=== PATIENT | male | born 1985 | race Caucasian/White ===

== ENCOUNTER 2021-09-17 14:52 | Emergency (ER) | payer SELFPAY ==
--- NOTE | ~2021-09-17 | XR_ITS ---
EXAMINATION: XR CHEST CLINICAL INFORMATION: Epigastric pain. COMPARISON: None. TECHNIQUE: AP view of the chest was obtained. FINDINGS: No significant abnormality is noted involving the heart, lungs, mediastinum, bony thorax or soft tissues. XR/XR chest 1V IMPRESSION: Unremarkable examination.
--- NOTE | ~2021-09-17 | CT_ITS ---
EXAMINATION: CT ABDOMEN AND PELVIS WITH CONTRAST CLINICAL INFORMATION: Epigastric pain. COMPARISON: None TECHNIQUE: Multidetector volumetric images were obtained from the superior aspect of the liver through the pubic symphysis following administration 85 mL of Omnipaque 350 intravenous contrast. Sagittal and coronal reformatted images were obtained on the technologist's workstation. Oral Contrast: No. This CT examination was performed using dose optimization techniques as appropriate, variously including the following: *Automated exposure control. *Adjustment of mA and/or kV according to patient size (this includes techniques or standardized protocols for targeted exams where dose is matched to indication/reason for exam; i.e. extremities or head). *Use of iterative reconstruction technique. DLP: 299 mGy-cm FINDINGS: LUNG BASES: The visualized lung bases are unremarkable. LIVER, GALLBLADDER, AND BILIARY TREE: The liver is normal in size, shape, and attenuation. No focal hepatic lesion or biliary ductal dilatation is present. The gallbladder is unremarkable with no evidence of radiopaque gallstones, gallbladder wall thickening, or obvious pericholecystic inflammatory changes. PANCREAS: Unremarkable. SPLEEN: Unremarkable. ADRENAL GLANDS: Unremarkable. KIDNEYS AND URETERS: The kidneys are normal in size, shape, and attenuation. No hydronephrosis, hydroureter, or calculi seen. No perinephric stranding. BLADDER: Unremarkable. GASTROINTESTINAL TRACT: Evaluation of wall thickening and mural abnormalities in the GI tract is limited due to underdistention and decreased intra-abdominal/mesenteric fat. The stomach and the small bowel are nondilated. There are however, several fluid-filled loops of small bowel throughout the abdomen which could be seen with gastroenteritis. No definite pericolonic inflammatory changes. The appendix is not identified. ABDOMINAL WALL: No significant hernia is appreciated. LYMPH NODES: Evaluation of lymphadenopathy is limited due to decreased intra-abdominal and mesenteric fat. However, accounting for its limitations, no definite lymphadenopathy by size criteria is identified. VASCULAR: Unremarkable. PELVIC VISCERA: Unremarkable. OSSEOUS STRUCTURES: No acute or aggressive-appearing osseous abnormalities. 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 Scattered bone islands are also noted. CT/CT abdomen pelvis w con IMPRESSION: Aside from possible mild gastroenteritis, no other acute abnormalities are identified to explain the patient's symptoms.
[2021-09-17 15:01] VITALS: BP 139/79; PULSE 78; RESP 17; TEMP 36.5; O2SAT 98; BMI 19.3
[2021-09-17 15:07] LABS: MANUAL DIFF FLAG NO
[2021-09-17 15:09] LABS: Basophils Percent Auto 0.3 % (0-2); Eosinophils Absolute Auto 0.2 X10*3/uL (0.0-0.4); Hematocrit 42.9 % (42.0-52.0); Imm Gran Abs Auto 0.03 X10*3/uL (0.00-0.03); Imm Gran Pct Auto 0.3 % (0.0-0.4); Lymphocytes Percent Auto 18.6 % (20-40); Mean Corpuscular HGB Conc 32.6 g/dl (31.0-36.0); Mean Corpuscular Volume 92.1 fL (80.0-98.0); Mean Platelet Volume 9.9 fL (9.4-12.4); Monocytes Absolute Auto 0.6 X10*3/uL (0.1-1.2); Monocytes Percent Auto 5.3 % (2-11); Neutrophils Percent Auto 73.5 % (45-73); Platelet Count 205 X10*3/uL (160-400); Red Blood Count 4.66 X10*6/uL (4.60-5.80); Red Cell Distribution Width 12.4 % (11.0-16.0); White Blood Count 10.9 X10*3/uL (4.8-10.8)
[2021-09-17 15:20] LABS: Appearance Urine CLEAR; Color Urine YELLOW; Glucose Urine UA NEG (NEG); Leukocyte Esterase Urine NEG (NEG); Nitrite Urine NEG (NEG); Specific Gravity - Urine 1.015 (1.005-1.025); UACC Culture Trigger NO; Urine Blood 1+ (NEG); Urine Ketones NEG (NEG); Urine Protein NEG (NEG-TRACE)
[2021-09-17 15:27] LABS: WBC Urine 0 /HPF (0-4)
[2021-09-17 15:35] LABS: Alanine Aminotransferase 11 U/L (0-40); Albumin Level 4.3 g/dL (3.5-5.0); Alkaline Phosphatase 80 U/L (39-117); Anion Gap 9 (12-20); Aspartate Amino Transferase 15 U/L (5-37); Bilirubin Total 0.5 mg/dL (0.0-1.0); Blood Urea Nitrogen 9 mg/dL (9-16); Calcium 9.3 mg/dL (8.4-10.2); Carbon Dioxide 30 mmol/L (22-29); Chloride 102 mmol/L (96-108); Creatinine Clr Calc Pharmacy 90.8; Estimated Glomerular Filt Rate > 60; Glucose Random 110 mg/dL (60-115); Potassium 3.8 mmol/L (3.3-5.1); Sodium 137 mmol/L (135-145); Total Protein 6.9 g/dL (6.5-8.0)
--- NOTE | 2021-09-17 16:21 | ED_ITS ---
HPI - Abdominal Pain General Chief Complaint: Abdominal Pain <GUILLERMO Esposito Last Filed: 09/17/21 19:06> Stated Complaint: abd pain, vomiting <GUILLERMO Esposito Last Filed: 09/17/21 19:06> Time Seen by Provider: 09/17/21 16:04 <GUILLERMO Esposito Last Filed: 09/17/21 19:06> Source: patient <GUILLERMO Esposito Last Filed: 09/17/21 19:06> Mode of arrival: ambulatory <GUILLERMO Esposito Last Filed: 09/17/21 19:06> Limitations: language barrier <GUILLERMO Esopsito Last Filed: 09/17/21 19:06> History of Present Illness HPI narrative: 36-year-old Turkish-speaking male presents for 3 days of intermittent epigastric pain. Patient vomited once 2 days ago, and has been mildly nauseous. Reports he has had dark stools. Reports the pain is worse 10 minutes after he eats. Patient had this pain before in [place], but never had it evaluated. No diarrhea, no fevers, no alcohol intake. Patient reports he takes ibuprofen at times for his migraines, has not taking ibuprofen for the last 2 weeks. No history of belly surgeries. Patient is healthy at baseline, no significant past medical history, noting medications. Patient has no pain now, at its worst the pain is 5/10. <GUILLERMO Esposito - Last Filed: 09/17/21 19:06> MD elicited complaint: abdominal pain <GUILLERMO Esposito Last Filed: 09/17/21 19:06> Pertinent past history: none <GUILLERMO Esposito Last Filed: 09/17/21 19:06> Onset (ago): day(s) (3) <GUILLERMO Esposito Last Filed: 09/17/21 19:06> Pain Consistency: intermittent <GUILLERMO Esposito Last Filed: 09/17/21 19:06> Location: epigastric <GUILLERMO Esposito Last Filed: 09/17/21 19:06> Severity: moderate <GUILLERMO Esposito Last Filed: 09/17/21 19:06> Pain scale (0-10): 5 <Raisa Cantor [facility] Last Filed: 09/17/21 19:06> Quality: cramping <Raisa Cantor [facility] Last Filed: 09/17/21 19:06> Radiation: none <Raisa Cantor [facility] Last Filed: 09/17/21 19:06> Migration to: no migration <Raisa Cantor [facility] Last Filed: 09/17/21 19:06> Relieving factors: eating <Raisa Cantor [facility] Last Filed: 09/17/21 19:06> Associated symptoms: nausea, vomiting and melena <Raisa Cantor [facility] Last Filed: 09/17/21 19:06> Related Data Allergies/Adverse Reactions: Allergies Allergy/AdvReac Type Severity Reaction Status Date / Time No Known Allergies Allergy Verified 09/17/21 16:22 <Raisa Cantor [facility] Last Filed: 09/17/21 19:06> Review of Systems Constitutional: Denies body ache(s), Denies chills, Denies fatigue, Denies fever(s), Denies headache(s), Denies malaise and Denies weakness <Raisa Cantor [facility] Last Filed: 09/17/21 19:06> Eyes: Denies diplopia <Raisa Cantor [facility] Last Filed: 09/17/21 19:06> Denies vertigo, Denies dizziness, Denies otalgia, Denies headache(s), Denies mouth pain, Denies odynophagia, Denies post nasal drip, Denies sinus pain, Denies sinus pressure, Denies sore throat and Denies throat swelling <Raisa Cantor [facility] Last Filed: 09/17/21 19:06> Cardiovascular: Denies chest pain, Denies syncope, Denies leg edema, Denies lightheadedness, Denies Loss of Consciousness, Denies palpitations and Denies dyspnea <Raisa Cantor [facility] Last Filed: 09/17/21 19:06> Respiratory: Denies chest congestion, Denies cough and Denies dyspnea <Raisa Cantor [facility] Last Filed: 09/17/21 19:06> Gastrointestinal: Reports abdominal pain, Reports melena, Denies hematochezia, Denies t enesmus, Denies coffee ground emesis, Denies constipation, Denies heartburn, Denies diarrhea, Reports nausea, Denies odynophagia, Reports vomiting and Denies hematemesis <GUILLERMO Esposito - Last Filed: 09/17/21 19:06> Genitourinary: Reports no additional male genitourinary complaints, Denies penile discharge, Denies scrotal swelling, Denies testicular mass and Denies testicular pain <GUILLERMO Esposito - Last Filed: 09/17/21 19:06> Musculoskeletal: Reports no additional musculoskeletal complaints <GUILLERMO Esposito - Last Filed: 09/17/21 19:06> Denies confusion, Denies vertigo, Denies dizziness, Denies syncope, Denies headache(s) and Denies weakness <GUILLERMO Esposito - Last Filed: 09/17/21 19:06> Psychiatric: Denies anxiety, Denies confusion and Denies depression <GUILLERMO Esposito - Last Filed: 09/17/21 19:06> Endocrine: Denies fatigue and Denies palpitations <GUILLERMO Esposito - Last Filed: 09/17/21 19:06> Allergic/Immunologic: Denies throat swelling <GUILLERMO Esposito - Last Filed: 09/17/21 19:06> [facility] Social History Social History: Social History Advance Directives: No Advance Directives Information Provided: No <GUILLERMO Esposito - Last Filed: 09/17/21 19:06> Physical Exam ED Vital Signs: Vital Signs - 24 hr 09/17/21 15:01 09/17/21 17:38 Temperature 97.7 F Pulse Rate 78 60 Respiratory Rate 17 16 Blood Pressure 139/79 120/70 Pulse Oximetry 98 100 BMI result Body Mass Index 19.3 <GUILLERMO Esposito - Last Filed: 09/17/21 19:06> Vital Signs - 24 hr 09/17/21 15:01 09/17/21 17:38 Temperature 97.7 F Pulse Rate 78 60 Respiratory Rate 17 16 Blood Pressure 139/79 120/70 Pulse Oximetry 98 100 BMI result Body Mass Index 19.3 <GUILLERMO Armijo - Last Filed: 09/17/21 19:22> Const General: cooperative, healthy appearing, comfortable, no acute distress, well developed, alert and awake; No confusion <Raisa Cantor [facility] Last Filed: 09/17/21 19:06> Nutritional Appearance: well nourished <Raisa Cantor [facility] Last Filed: 09/17/21 19:06> Orientation/consciousness: patient oriented x3 and No confusion <Raisa Cantor [facility] Last Filed: 09/17/21 19:06> Limitations: no limitations <Raisa Cantor [facility] Last Filed: 09/17/21 19:06> HENMT Head: Yes normal to inspection, Yes No palpable skull fracture present, Yes nor mocephalic and Yes atraumatic <Raisa Cantor [facility] Last Filed: 09/17/21 19:06> Ears: hearing grossly normal bilaterally <Raisa Cantor [facility] Last Filed: 09/17/21 19:06> General nose exam: Normal external nose present <Raisa Cantor [facility] Last Filed: 09/17/21 19:06> Face and sinus: Yes normal facial exam <Raisa Cantor [facility] Last Filed: 09/17/21 19:06> Mouth: Normal oral and palatal mucosa present <Raisa Cantor [facility] Last Filed: 09/17/21 19:06> Throat: Yes posterior oropharynx normal <Raisa Cantor [facility] Last Filed: 09/17/21 19:06> Eyes Pupils: Equal, round and reactive pupils present <Raisa Cantor [facility] Last Filed: 09/17/21 19:06> EOM: EOMs intact bilaterally <Raisa Cantor [facility] Last Filed: 09/17/21 19:06> Neck Neck: Yes normal visual inspection, Yes full ROM, Yes no lymphadenopathy, Yes no meningeal signs and Yes trachea midline <Raisa Cantor [facility] Last Filed: 09/17/21 19:06> Resp Effort & Inspection: normal respiratory effort and able to speak in complete sentences <Raisa Cantor [facility] Last Filed: 09/17/21 19:06> Auscultation: clear to auscultation bilaterally, no crackles, no rales, no rhonchi and no wheezes <Raisa Cantor [facility] Last Filed: 09/17/21 19:06> Cardio Rate: regular rate <Raisa Cantor [facility] Last Filed: 09/17/21 19:06> Rhythm: regular rhythm <Raisa Cantor [facility] Last Filed: 09/17/21 19:06> Heart sounds: S1 normal heart sound present and S2 normal heart sound present <Raisa Cantor [facility] Last Filed: 09/17/21 19:06> GI Inspection: Yes normal to inspection, No distended, No incision, No Abdominal panniculus present and No obesity <Raisa Cantor [facility] Last Filed: 09/17/21 19:06> Palpation (GI): Soft to palpation, not firm, Tenderness to palpation present (GI) in the e pigastrum, Guarding due to palpation present (GI) other (epigastric) and not rigid <Raisa Cantor [facility] Last Filed: 09/17/21 19:06> Percussion: Yes normal to percussion <Raisa Cantor [facility] Last Filed: 09/17/21 19 :06> Auscultation: normal bowel sounds <Raisa Cantor [facility] Last Filed: 09/17/21 19:06> Skin General skin exam: no rashes or lesions noted <Raisa Cantor [facility] Last Filed: 09/17/21 19:06> Neuro General: patient oriented x3, gait normal, tone normal, no meningeal signs, no focal motor deficits and No confusion <Raisa Cantor [facility] Last Filed: 09/17/21 19:06> Cranial nerves: Yes Equal, round and reactive pupils present <Raisa Cantor [facility] Last Filed: 09/17/21 19:06> Extrem General: Yes normal to inspection, Yes full ROM and Yes capillary refill normal <Raisa Cantor [facility] Last Filed: 09/17/21 19:06> Psych Appearance: grossly normal and well kempt <Riasa Cantor [facility] Last Filed: 09/17/21 19:06> Mental Status: mental status grossly normal <Raisa Cantor [facility] Last Filed: 09/17/21 19:06> Speech and movement: Normal speech and movement present <Raisa Cantor [facility] Last Filed: 09/17/21 19:06> Affect: normal affect <GUILLERMO Esposito - Last Filed: 09/17/21 19:06> Attitude: cooperative <GUILLERMO Esposito Last Filed: 09/17/21 19:06> Thought process: Normal thought process present <GUILLERMO Esposito Last Filed: 09/17/21 19:06> Course Course Course Narrative: 36-year-old male with 3 days of intermittent epigastric pain that occurs after eating. Also endorses dark stools. On exam, patient is well-appearing, stable vitals, patient is tender and guarding in his epigastrium. Labs that were drawn showed a white blood cell count of 10.9, +1 blood in his urine, CMP is within normal limits. One hundred lipase, troponin, EKG, chest x-ray, fecal occult blood test, with CT abdomen. Suspect gastric ulcer pathology . <GUILLERMO Esposito Last Filed: 09/17/21 19:06> Reevaluation(s) Reevaluation #1: Guaiac is negative, EKG unremarkable, troponin is undetectable. Lipase is not elevated. Chest x-ray is normal. <GUILLERMO Esposito - Last Filed: 09/17/21 19:06> Reevaluation #2: Signed patient out to GUILLERMO Ortiz, pending CT results <GUILLERMO Esposito Last Filed: 09/17/21 19:06> Time: 19:00 <GUILLERMO Armijo - Last Filed: 09/17/21 19:22> Reevaluation #3: CT abdomen/pelvis shows gastroenteritis but is otherwise unremarkable. Patient is clear for discharge. <GUILLERMO Armijo - Last Filed: 09/17/21 19:22> Time: 19:22 <GUILLERMO Armijo - Last Filed: 09/17/21 19:22> MDM - Abdominal Pain MDM Narrative Medical decision making narrative: Sign 7 rate of 63, FL interval 152, QRS 92, QTC 384, normal axis, no ST depressions or elevations, no T-wave abnormalities <GUILLERMO Esposito Last Filed: 09/17/21 19:06> Lab Data Result diagrams: : 09/17/21 15:03 09/17/21 15:03 <GUILLERMO Esposito Last Filed: 03/30/22 19:06> Labs: Lab Results 09/17/21 09/17/21 09/17/21 Range/Units 15:03 15:03 15:09 WBC 10.9 H (4.8-10.8) X10*3/uL RBC 4.66 (4.60-5.80) X10*6/uL Hgb 14.0 (14.0-18.0) g/dl Hct 42.9 (42.0-52.0) % MCV 92.1 (80.0-98.0) fL MCH 30.0 (27.0-33.0) pg MCHC 32.6 (31.0-36.0) g/dl RDW 12.4 (11.0-16.0) % Plt Count 205 (160-400) X10*3/uL MPV 9.9 (9.4-12.4) fL Immature Gran % (Auto) 0.3 (0.0-0.4) % Neut % (Auto) 73.5 H (45-73) % Lymph % (Auto) 18.6 L (20-40) % [place] % (Auto) 5.3 (2-11) % Eos % (Auto) 2.0 (0-4) % Baso % (Auto) 0.3 (0-2) % Lymph # (Auto) 2.0 (1.2-4.9) X10*3/uL [place] # (Auto) 0.6 (0.1-1.2) X10*3/uL Eos # (Auto) 0.2 (0.0-0.4) X10*3/uL Baso # (Auto) 0.0 (0.0-0.2) X10*3/uL Abs Immat Gran (auto) 0.03 (0.00-0.03) X10*3/uL Absolute Neuts (auto) 8.0 (2.0-8.3) x10*3/uL Absolute Nucleated RBC 0.000 (0.0-0.012) X10*3/uL Nucleated RBC % (auto) 0.0 (0.0-0.2) /100WBC Sodium 137 (135-145) mmol/L Potassium 3.8 (3.3-5.1) mmol/L Chloride 102 (96-108) mmol/L Carbon Dioxide 30 H (22-29) mmol/L Anion Gap 9 L (12-20) BUN 9 (9-16) mg/dL Creatinine 0.87 (0.5-1.4) mg/dL Estim Creat Clear Calc 90.8 Estimated GFR > 60 Random Glucose 110 (60-115) mg/dL Calcium 9.3 (8.4-10.2) mg/dL Total Bilirubin 0.5 (0.0-1.0) mg/dL AST 15 (5-37) U/L ALT 11 (0-40) U/L Alkaline Phosphatase 80 (39-117) U/L Troponin I High Sens (<3.5-35.0) ng/L Total Protein 6.9 (6.5-8.0) g/dL Albumin 4.3 (3.5-5.0) g/dL Lipase (8-78) U/L Urine Color YELLOW Urine Appearance CLEAR Urine pH 7.0 (5.0-8.0) Ur Specific [place] 1.015 (1.005-1.025) Urine Protein NEG (NEG-TRACE) MG/DL Urine Glucose (UA) NEG (NEG) MG/DL Urine Ketones NEG (NEG) MG/DL Urine Blood 1+ H (NEG) Urine Nitrite NEG (NEG) Ur Leukocyte Esterase NEG (NEG) Urine RBC 1-4 (0) /HPF Urine WBC 0 (0-4) /HPF Ur Squamous Epith Cells NONE /LPF Urine Bacteria NONE /LPF Stool Occult Blood (NEGATIVE) 09/17/21 09/17/21 09/17/21 Range/Units 17:01 17:37 17:37 WBC (4.8-10.8) X10*3/uL RBC (4.60-5.80) X10*6/uL Hgb (14.0-18.0) g/dl Hct (42.0-52.0) % MCV (80.0-98.0) fL MCH (27.0-33.0) pg MCHC (31.0-36.0) g/dl RDW (11.0-16.0) % Plt Count (160-400) X10*3/uL MPV (9.4-12.4) fL Immature Gran % (Auto) (0.0-0.4) % Neut % (Auto) (45-73) % Lymph % (Auto) (20-40) % [place] % (Auto) (2-11) % Eos % (Auto) (0-4) % Baso % (Auto) (0-2) % Lymph # (Auto) (1.2-4.9) X10*3/uL [place] # (Auto) (0.1-1.2) X10*3/uL Eos # (Auto) (0.0-0.4) X10*3/uL Baso # (Auto) (0.0-0.2) X10*3/uL Abs Immat Gran (auto) (0.00-0.03) X10*3/uL Absolute Neuts (auto) (2.0-8.3) x10*3/uL Absolute Nucleated RBC (0.0-0.012) X10*3/uL Nucleated RBC % (auto) (0.0-0.2) /100WBC Sodium (135-145) mmol/L Potassium (3.3-5.1) mmol/L Chloride (96-108) mmol/L Carbon Dioxide (22-29) mmol/L Anion Gap (12-20) BUN (9-16) mg/dL Creatinine (0.5-1.4) mg/dL Estim Creat Clear Calc Estimated GFR Random Glucose (60-115) mg/dL Calcium (8.4-10.2) mg/dL Total Bilirubin (0.0-1.0) mg/dL AST (5-37) U/L ALT (0-40) U/L Alkaline Phosphatase (39-117) U/L Troponin I High Sens < 3.5 (<3.5-35.0) ng/L Total Protein (6.5-8.0) g/dL Albumin (3.5-5.0) g/dL Lipase 13 (8-78) U/L Urine Color Urine Appearance Urine pH (5.0-8.0) Ur Specific [place] (1.005-1.025) Urine Protein (NEG-TRACE) MG/DL Urine Glucose (UA) (NEG) MG/DL Urine Ketones (NEG) MG/DL Urine Blood (NEG) Urine Nitrite (NEG) Ur Leukocyte Esterase (NEG) Urine RBC (0) /HPF Urine WBC (0-4) /HPF Ur Squamous Epith Cells /LPF Urine Bacteria /LPF Stool Occult Blood NEGATIVE (NEGATIVE) <GUILLERMO Esposito - Last Filed: 09/17/21 19:06> Lab Results 09/17/21 09/17/21 09/17/21 Range/Units 15:03 15:03 15:09 WBC 10.9 H (4.8-10.8) X10*3/uL RBC 4.66 (4.60-5.80) X10*6/uL Hgb 14.0 (14.0-18.0) g/dl Hct 42.9 (42.0-52.0) % MCV 92.1 (80.0-98.0) fL MCH 30.0 (27.0-33.0) pg MCHC 32.6 (31.0-36.0) g/dl RDW 12.4 (11.0-16.0) % Plt Count 205 (160-400) X10*3/uL MPV 9.9 (9.4-12.4) fL Immature Gran % (Auto) 0.3 (0.0-0.4) % Neut % (Auto) 73.5 H (45-73) % Lymph % (Auto) 18.6 L (20-40) % [place] % (Auto) 5.3 (2-11) % Eos % (Auto) 2.0 (0-4) % Baso % (Auto) 0.3 (0-2) % Lymph # (Auto) 2.0 (1.2-4.9) X10*3/uL [place] # (Auto) 0.6 (0.1-1.2) X10*3/uL Eos # (Auto) 0.2 (0.0-0.4) X10*3/uL Baso # (Auto) 0.0 (0.0-0.2) X10*3/uL Abs Immat Gran (auto) 0.03 (0.00-0.03) X10*3/uL Absolute Neuts (auto) 8.0 (2.0-8.3) x10*3/uL Absolute Nucleated RBC 0.000 (0.0-0.012) X10*3/uL Nucleated RBC % (auto) 0.0 (0.0-0.2) /100WBC Sodium 137 (135-145) mmol/L Potassium 3.8 (3.3-5.1) mmol/L Chloride 102 (96-108) mmol/L Carbon Dioxide 30 H (22-29) mmol/L Anion Gap 9 L (12-20) BUN 9 (9-16) mg/dL Creatinine 0.87 (0.5-1.4) mg/dL Estim Creat Clear Calc 90.8 Estimated GFR > 60 Random Glucose 110 (60-115) mg/dL Calcium 9.3 (8.4-10.2) mg/dL Total Bilirubin 0.5 (0.0-1.0) mg/dL AST 15 (5-37) U/L ALT 11 (0-40) U/L Alkaline Phosphatase 80 (39-117) U/L Troponin I High Sens (<3.5-35.0) ng/L Total Protein 6.9 (6.5-8.0) g/dL Albumin 4.3 (3.5-5.0) g/dL Lipase (8-78) U/L Urine Color YELLOW Urine Appearance CLEAR Urine pH 7.0 (5.0-8.0) Ur Specific [place] 1.015 (1.005-1.025) Urine Protein NEG (NEG-TRACE) MG/DL Urine Glucose (UA) NEG (NEG) MG/DL Urine Ketones NEG (NEG) MG/DL Urine Blood 1+ H (NEG) Urine Nitrite NEG (NEG) Ur Leukocyte Esterase NEG (NEG) Urine RBC 1-4 (0) /HPF Urine WBC 0 (0-4) /HPF Ur Squamous Epith Cells NONE /LPF Urine Bacteria NONE /LPF Stool Occult Blood (NEGATIVE) 09/17/21 09/17/21 09/17/21 Range/Units 17:01 17:37 17:37 WBC (4.8-10.8) X10*3/uL RBC (4.60-5.80) X10*6/uL Hgb (14.0-18.0) g/dl Hct (42.0-52.0) % MCV (80.0-98.0) fL MCH (27.0-33.0) pg MCHC (31.0-36.0) g/dl RDW (11.0-16.0) % Plt Count (160-400) X10*3/uL MPV (9.4-12.4) fL Immature Gran % (Auto) (0.0-0.4) % Neut % (Auto) (45-73) % Lymph % (Auto) (20-40) % [place] % (Auto) (2-11) % Eos % (Auto) (0-4) % Baso % (Auto) (0-2) % Lymph # (Auto) (1.2-4.9) X10*3/uL [place] # (Auto) (0.1-1.2) X10*3/uL Eos # (Auto) (0.0-0.4) X10*3/uL Baso # (Auto) (0.0-0.2) X10*3/uL Abs Immat Gran (auto) (0.00-0.03) X10*3/uL Absolute Neuts (auto) (2.0-8.3) x10*3/uL Absolute Nucleated RBC (0.0-0.012) X10*3/uL Nucleated RBC % (auto) (0.0-0.2) /100WBC Sodium (135-145) mmol/L Potassium (3.3-5.1) mmol/L Chloride (96-108) mmol/L Carbon Dioxide (22-29) mmol/L Anion Gap (12-20) BUN (9-16) mg/dL Creatinine (0.5-1.4) mg/dL Estim Creat Clear Calc Estimated GFR Random Glucose (60-115) mg/dL Calcium (8.4-10.2) mg/dL Total Bilirubin (0.0-1.0) mg/dL AST (5-37) U/L ALT (0-40) U/L Alkaline Phosphatase (39-117) U/L Troponin I High Sens < 3.5 (<3.5-35.0) ng/L Total Protein (6.5-8.0) g/dL Albumin (3.5-5.0) g/dL Lipase 13 (8-78) U/L Urine Color Urine Appearance Urine pH (5.0-8.0) Ur Specific [place] (1.005-1.025) Urine Protein (NEG-TRACE) MG/DL Urine Glucose (UA) (NEG) MG/DL Urine Ketones (NEG) MG/DL Urine Blood (NEG) Urine Nitrite (NEG) Ur Leukocyte Esterase (NEG) Urine RBC (0) /HPF Urine WBC (0-4) /HPF Ur Squamous Epith Cells /LPF Urine Bacteria /LPF Stool Occult Blood NEGATIVE (NEGATIVE) <GUILLERMO Armijo - Last Filed: 09/17/21 19:22> Discharge Plan Discharge Clinical Impression: Epigastric abdominal pain, Gastroenteritis <GUILLERMO Esposito - Last Filed: 09/17/21 19:06> Patient Disposition: Home, Self-Care <GUILLERMO Esposito - Last Filed: 09/17/21 19:06> Instructions: Abdominal Pain (ED) <GUILLERMO Esposito - Last Filed: 09/17/21 19:06> Additional Instructions: [phone] <GUILLERMO Esposito - Last Filed: 09/17/21 19:06> Referrals: Devaughn Penny [Physician] - 2 days <GUILLERMO Esposito - Last Filed: 09/17/21 19:06> Print Language: Greek <GUILLERMO Esposito - Last Filed: 09/17/21 19:06>
--- NOTE | 2021-09-17 16:22 | ECG_ITS ---
Test Reason : EPIGASTRIC PAIN Blood Pressure : / mmHG Vent. Rate : 063 BPM Atrial Rate : 063 BPM P-R Int : 152 ms QRS Dur : 092 ms QT Int : 376 ms P-R-T Axes : 056 054 035 degrees QTc Int : 384 ms Normal sinus rhythm Normal ECG No previous ECGs available Referred By: Raisa Cantor Electronically Signed By:JORGE ORTEGA
[2021-09-17 17:10] LABS: OBS Int Ctl Valid YES; OBS1 NEGATIVE (NEGATIVE)
[2021-09-17] MEDS: iohexoL 350 MG/ML 100 ML INFUS..BTL IV (17:18)
[2021-09-17 17:38] VITALS: BP 120/70; PULSE 60; RESP 16; O2SAT 100
[2021-09-17 18:04] LABS: Lipase 13 U/L (8-78)
[2021-09-17 18:10] LABS: Troponin-I High Sensitivity < 3.5 ng/L (<3.5-35.0)
[2021-09-17] MEDS: 0.9 % Sodium Chloride 1,000 ML 999 ML IV (18:17)
== END 2021-09-17 19:46 | disposition home or self-care (01) ==
PROVIDERS: Physician Assistant; Emergency Provider Emergency Medicine
DX: K52.9 Noninfective gastroenteritis and colitis, unspecified (principal); R10.13 Epigastric pain; R11.2 Nausea with vomiting, unspecified
CPT/HCPCS: 36415; 71045; 74177; 80053; 81001; 82272; 83690; 84484; 85025; 93005; 96360; 99284; Q9967

== ENCOUNTER 2022-03-20 22:39 | Emergency (ER) | payer SELFPAY ==
[2022-03-20 23:58] VITALS: BP 142/79; PULSE 68; RESP 16; TEMP 37.2; O2SAT 98; BMI 20.1
[2022-03-21 00:01] LABS: COVID-19 Test Negative (Negative); IDNOW Serial# 55D5AD1C; Influenza A Negative (Negative); Influenza B2 Negative (Negative)
[2022-03-21 00:51] VITALS: BP 115/70; PULSE 58; RESP 16; TEMP 36.6; O2SAT 99
[2022-03-21 01:05] LABS: MANUAL DIFF FLAG NO
[2022-03-21 01:06] LABS: Basophils Absolute Auto 0.1 X10*3/uL (0.0-0.2); Basophils Percent Auto 0.8 % (0-2); Eosinophils Absolute Auto 0.3 X10*3/uL (0.0-0.4); Eosinophils Percent Auto 3.9 % (0-4); Hematocrit 41.9 % (42.0-52.0); Hemoglobin 13.9 g/dl (14.0-18.0); Imm Gran Abs Auto 0.02 X10*3/uL (0.00-0.03); Imm Gran Pct Auto 0.3 % (0.0-0.4); Lymphocytes Absolute Auto 2.8 X10*3/uL (1.2-4.9); Lymphocytes Percent Auto 43.6 % (20-40); Mean Corpuscular HGB Conc 33.2 g/dl (31.0-36.0); Mean Corpuscular Hemoglobin 30.4 pg (27.0-33.0); Mean Corpuscular Volume 91.7 fL (80.0-98.0); Mean Platelet Volume 10.2 fL (9.4-12.4); Monocytes Absolute Auto 0.5 X10*3/uL (0.1-1.2); Monocytes Percent Auto 7.2 % (2-11); Neutrophils Absolute Auto 2.8 x10*3/uL (2.0-8.3); Neutrophils Percent Auto 44.2 % (45-73); Platelet Count 208 X10*3/uL (160-400); Red Blood Count 4.57 X10*6/uL (4.60-5.80); Red Cell Distribution Width 12.7 % (11.0-16.0); White Blood Count 6.4 X10*3/uL (4.8-10.8)
[2022-03-21 01:23] LABS: Alanine Aminotransferase 12 U/L (0-40); Albumin Level 4.1 g/dL (3.5-5.0); Alkaline Phosphatase 67 U/L (39-117); Anion Gap 17 (12-20); Aspartate Amino Transferase 15 U/L (5-37); Bilirubin Total 0.4 mg/dL (0.0-1.0); Blood Urea Nitrogen 13 mg/dL (9-16); Calcium 9.2 mg/dL (8.4-10.2); Carbon Dioxide 25 mmol/L (22-29); Chloride 106 mmol/L (96-108); Creatinine Clr Calc Pharmacy 78.7; Estimated Glomerular Filt Rate > 60; Glucose Random 83 mg/dL (60-115); Sodium 144 mmol/L (135-145); Total Protein 6.6 g/dL (6.5-8.0)
--- NOTE | 2022-03-21 01:30 | ED.GENADULT ---
HPI - General Adult General Chief complaint: General Medical Stated complaint: cough,fever,headaches Time Seen by Provider: 03/21/22 01:30 Source: patient and parts interpreter Mode of arrival: ambulatory History of Present Illness HPI narrative: 36-year-old male without significant past medical history presents after having positive COVID-19 exposure from his son and states that since yesterday he has had increasing body aches with subjective fevers and chills as well as cough in feelings of dizziness. Patient states that his symptoms have improved with taking Tylenol Related Data Allergies Allergy/AdvReac Type Severity Reaction Status Date / Time No Known Allergies Allergy Verified 09/17/21 16:22 Review of Systems Review of Systems: Pertinent positives and negatives as stated in HPI 10 point review of systems is otherwise negative. [facility] Past Medical History Source: nursing notes reviewed Social History Social History Advance Directives: No Advance Directives Information Provided: Yes Physical Exam ED Vital Signs: Vital Signs - 24 hr 03/20/22 23:58 03/21/22 00:51 Temperature 98.9 F 97.8 F Pulse Rate 68 58 Respiratory Rate 16 16 Blood Pressure 142/79 H 115/70 Pulse Oximetry 98 99 Oxygen Delivery Method Room Air Room Air BMI result Body Mass Index 20.1 VITAL SIGNS: Reviewed. GENERAL: Well developed, well nourished, in no acute distress. HEAD: Normocephalic/atraumatic EYES: PERRLA, EOMI, patient has stye to right upper lid EARS: Ext canals without abnormality, TMs non-bulging and non-erythematous NOSE: Nares patent bilateral OROPHARYNX: no oral lesions noted, posterior pharynx clear but erythematous without noted tonsillar enlargement/erythema/exudates NECK: Supple, no adenopathy LUNGS: Normal breath sounds. No adventitious sounds or accessory muscle use. SpO2<98> CARDIOVASCULAR: Regular rate and rhythm without noted murmurs ABDOMEN: Soft, non-tender, non-distended with bowel sounds. MUSCULOSKELETAL: No tenderness, deformities, or effusions noted on gross inspection. EXTREMITIES: No cyanosis, clubbing or edema. SKIN: Inspection of the skin reveals no rashes NEUROLOGIC: Alert and oriented x 4. Strength and sensation to light touch were grossly intact x 4. Course Course Course Narrative: 36-year-old male with history and clinical presentation consistent with viral syndrome suspect COVID-19 positivity, will provide combination analgesics. On review of all investigations there are no acute findings, however the results were discussed with patient he was strongly recommended to repeat the COVID-19 testing tomorrow morning. Until that time he was instructed to stay away from large groups and wear his mask all the time. Medical Decision Making Lab Data Result diagrams: 03/21/22 00:56 03/21/22 00:56 Labs: Lab Results 03/20/22 03/20/22 03/21/22 Range/Units 23:22 23:22 00:56 WBC 6.4 (4.8-10.8) X10*3/uL RBC 4.57 L (4.60-5.80) X10*6/uL Hgb 13.9 L (14.0-18.0) g/dl Hct 41.9 L (42.0-52.0) % MCV 91.7 (80.0-98.0) fL MCH 30.4 (27.0-33.0) pg MCHC 33.2 (31.0-36.0) g/dl RDW 12.7 (11.0-16.0) % Plt Count 208 (160-400) X10*3/uL MPV 10.2 (9.4-12.4) fL Immature Gran % (Auto) 0.3 (0.0-0.4) % Neut % (Auto) 44.2 L (45-73) % Lymph % (Auto) 43.6 H (20-40) % Metcalfe % (Auto) 7.2 (2-11) % Eos % (Auto) 3.9 (0-4) % Baso % (Auto) 0.8 (0-2) % Lymph # (Auto) 2.8 (1.2-4.9) X10*3/uL Metcalfe # (Auto) 0.5 (0.1-1.2) X10*3/uL Eos # (Auto) 0.3 (0.0-0.4) X10*3/uL Baso # (Auto) 0.1 (0.0-0.2) X10*3/uL Abs Immat Gran (auto) 0.02 (0.00-0.03) X10*3/uL Absolute Neuts (auto) 2.8 (2.0-8.3) x10*3/uL Absolute Nucleated RBC 0.000 (0.0-0.012) X10*3/uL Nucleated RBC % (auto) 0.0 (0.0-0.2) /100WBC Sodium (135-145) mmol/L Potassium (3.3-5.1) mmol/L Chloride (96-108) mmol/L Carbon Dioxide (22-29) mmol/L Anion Gap (12-20) BUN (9-16) mg/dL Creatinine (0.5-1.4) mg/dL Estim Creat Clear Calc Estimated GFR Random Glucose (60-115) mg/dL Calcium (8.4-10.2) mg/dL Total Bilirubin (0.0-1.0) mg/dL AST (5-37) U/L ALT (0-40) U/L Alkaline Phosphatase (39-117) U/L Total Protein (6.5-8.0) g/dL Albumin (3.5-5.0) g/dL COVID-19 (ROCHELLE) Negative (Negative) COVID-19 Clin Com See Note Influenza Type A (GERALD) Negative (Negative) Influenza Type B (GERALD) Negative (Negative) Influenza A & B Note See Note 03/21/22 Range/Units 00:56 WBC (4.8-10.8) X10*3/uL RBC (4.60-5.80) X10*6/uL Hgb (14.0-18.0) g/dl Hct (42.0-52.0) % MCV (80.0-98.0) fL MCH (27.0-33.0) pg MCHC (31.0-36.0) g/dl RDW (11.0-16.0) % Plt Count (160-400) X10*3/uL MPV (9.4-12.4) fL Immature Gran % (Auto) (0.0-0.4) % Neut % (Auto) (45-73) % Lymph % (Auto) (20-40) % [place]calfe % (Auto) (2-11) % Eos % (Auto) (0-4) % Baso % (Auto) (0-2) % Lymph # (Auto) (1.2-4.9) X10*3/uL Metcalfe # (Auto) (0.1-1.2) X10*3/uL Eos # (Auto) (0.0-0.4) X10*3/uL Baso # (Auto) (0.0-0.2) X10*3/uL Abs Immat Gran (auto) (0.00-0.03) X10*3/uL Absolute Neuts (auto) (2.0-8.3) x10*3/uL Absolute Nucleated RBC (0.0-0.012) X10*3/uL Nucleated RBC % (auto) (0.0-0.2) /100WBC Sodium 144 (135-145) mmol/L Potassium 4.0 (3.3-5.1) mmol/L Chloride 106 (96-108) mmol/L Carbon Dioxide 25 (22-29) mmol/L Anion Gap 17 (12-20) BUN 13 (9-16) mg/dL Creatinine 1.05 (0.5-1.4) mg/dL Estim Creat Clear Calc 78.7 Estimated GFR > 60 Random Glucose 83 (60-115) mg/dL Calcium 9.2 (8.4-10.2) mg/dL Total Bilirubin 0.4 (0.0-1.0) mg/dL AST 15 (5-37) U/L ALT 12 (0-40) U/L Alkaline Phosphatase 67 (39-117) U/L Total Protein 6.6 (6.5-8.0) g/dL Albumin 4.1 (3.5-5.0) g/dL COVID-19 (ROCHELLE) (Negative) COVID-19 Clin Com Influenza Type A (GERALD) (Negative) Influenza Type B (GERALD) (Negative) Influenza A & B Note Discharge Plan Discharge Clinical Impression: Viral syndrome, Close exposure to COVID-19 virus Patient Disposition: Home, Self-Care Instructions: Viral Syndrome (ED), COVID-19 (Coronavirus Disease 2019) (ED) Additional Instructions: 1. Recomendar Tylenol/ibuprofeno de venta suzie seg?n sea necesario para ananth corporales, ananth de emery, temperaturas superiores a 100.4. Aumente la cantidad de agua que est? bebiendo. 2. Tiene hiram exposici?n positiva a COVID-19 y debe continuar usando [place] m?scara y seguir todas las pautas establecidas por los [facility] y [place]. 3. Recomi?ndele repetir la prueba de COVID-19 en casa ma?ahsan y el fernando. Regrese a la charity de emergencias si los s?ntomas empeoran. Print Language: Kazakh
== END 2022-03-21 01:52 | disposition home or self-care (01) ==
PROVIDERS: Emergency Provider Student in an Organized Health Care Education/Training Program
DX: B34.9 Viral infection, unspecified (principal); R51.9 Headache, unspecified; Z20.822 Contact with and (suspected) exposure to COVID-19
CPT/HCPCS: 80053; 85025; 87502; 87635; 99283